=== PATIENT | female | born 2000 | race Caucasian/White ===

== ENCOUNTER 2019-10-29 09:32 | Emergency (ER) | payer OTHER ==
[~2019-10-29] VITALS: Ht 165.1 cm; Wt 108.9 kg
[2019-10-29 10:24] LABS: INFLUENZA A ANTIGEN Negative (Negative); INFLUENZA B ANTIGEN Negative (Negative)
[2019-10-29] MEDS ORDERED: AMOXICILLIN 50500 MG PO ×2 (10:31)
[2019-10-29 10:39] VITALS: BP 128/93
== END 2019-10-29 10:42 | disposition home or self-care (01) ==
LOC: M.ERS 09:32
PROVIDERS: Personal Emergency Response Attendant
DX: J02.9 Acute pharyngitis, unspecified (principal); R59.1 Generalized enlarged lymph nodes

== ENCOUNTER 2021-04-29 10:24 | Emergency (ER) | payer OTHER, MEDICAID ==
[~2021-04-29] VITALS: Ht 165.1 cm; Wt 79.4 kg
[~2021-04-29 10:24] MED LIST: AMOXICILLIN 50500 MG PO
[2021-04-29 11:10] VITALS: BP 108/58
== END 2021-04-29 11:10 | disposition home or self-care (01) ==
LOC: M.ERS 10:24
DX: J02.9 Acute pharyngitis, unspecified (principal)